=== PATIENT | male | born 1930 | race Caucasian/White ===

== ENCOUNTER → 2018-11-21 | Day surgery (SDC) | payer MEDICARE, BC ==
[~2018-11-21] MED LIST: Lactated Ringers 1,000 ML IV SCH; Propofol 200 MG/20 ML SDV IV ONE
[2018-11-21 09:59] VITALS: BP 108/84
--- NOTE | 2018-11-24 09:46 | OR ---
DATE OF OPERATION: 11/21/2018 PREOPERATIVE DIAGNOSIS: 1. FOLLOWUP POLYPS. 2. FAMILY HISTORY OF COLON CARCINOMA. POSTOPERATIVE DIAGNOSIS: 1. FOLLOWUP POLYPS. 2. FAMILY HISTORY OF COLON CARCINOMA. SURGEON: Abram Stephens MD PROCEDURE: FULL-LENGTH COLONOSCOPY WITH FORCEPS POLYP REMOVAL X1. ANESTHESIA: ELDERLY COMPANION due to advanced age. COMPLICATIONS: None. SPECIMEN: Sessile polyp at the splenic flexure, less than 0.5 cm. FINDINGS: 1. Full-length colonoscopy. 2. Small sessile polyps, splenic flexure. 3. Minimal diverticulosis distal sigmoid colon. RECOMMENDATIONS: Followup colonoscopy in 5 years per patient's desire. INDICATIONS: The patient approximately 3 years ago had a colonoscopy with 2 polyps removed. He has a brother with a history of colon cancer. He was sent for a followup colonoscopy. DESCRIPTION OF PROCEDURE: The patient was prepped and draped, placed in the left lateral decubitus position. A lubricated Olympus colonoscope was inserted and easily advanced to the cecum. Direct visualization of the ileocecal valve and appendiceal orifice was accomplished. The bowel prep was adequate. Upon withdrawal of the scope, the cecum and ascending colon were benign. In the distal transverse colon near the splenic flexure, the patient had a small flat sessile polyp removed in its entirety with 2 cold forceps biopsies. Resolution of bleeding was spontaneous. The rest of the descending colon was unremarkable. In the sigmoid area, the patient had no signs of any polyps, mass, ulceration, bleeding sites. No vascular abnormalities or signs of colitis. Few scattered diverticula were seen in the most distal portion near the rectosigmoid junction, very minimal in severity. The rectal vault appeared benign. Retroflexion showed some prominent perianal hemorrhoid disease but otherwise no lesions. Air was then suctioned. Scope removed without complication. MJP/KAYL /[id number] CC: Dr. Gui Mcdermott MD [address] [address]
== END ==
LOC: CC.SDS 08:03
PROVIDERS: ATTEND Family Medicine
DX: Z12.11 Encounter for screening for malignant neoplasm of colon (principal); K63.5 Polyp of colon; K57.30 Diverticulosis of large intestine without perforation or abscess without bleeding; K64.9 Unspecified hemorrhoids; I10 Essential (primary) hypertension; K21.9 Gastro-esophageal reflux disease without esophagitis; Z86.010 Personal history of colon polyps; Z79.82 Long term (current) use of aspirin; Z79.899 Other long term (current) drug therapy; Z80.0 Family history of malignant neoplasm of digestive organs
CPT/HCPCS: J2704; J7120

== ENCOUNTER → 2020-01-15 | Day surgery (SDC) | payer MEDICARE, BC ==
[2020-01-15 09:35] VITALS: BP 133/61; PULSE 65
--- NOTE | 2020-01-15 14:09 | OR ---
DATE OF OPERATION: 01/15/2020 PREOPERATIVE DIAGNOSIS: 1. MELENA. 2. GASTROESOPHAGEAL REFLUX DISEASE. POSTOPERATIVE DIAGNOSIS: 1. DUODENITIS/GASTRITIS. 2. APPLE-CORE LESION, HEPATIC FLEXURE. SURGEON: Abram Stephens MD PROCEDURE: 1. EGD WITH BIOPSIES X4, POLYP REMOVAL X2, LARRY. 2. FULL-LENGTH COLONOSCOPY TO HEPATIC FLEXURE WITH BIOPSIES X3. ANESTHESIA: MAC. COMPLICATIONS: None. SPECIMEN: 1. Duodenal bulb biopsy x2. 2. Antral biopsy x2. 3. Antral LARRY. 4. Fundal polyps x2. 5. Biopsy x3, hepatic flexure. FINDINGS: 1. Full-length EGD. 2. Mild duodenitis and gastritis. 3. Multitude of fundal adenomatous polyps. 4. Full-length colonoscopy. 5. Pandiverticulosis. 6. Ulcerative stricture, hepatic flexure with evidence of bleeding. RECOMMENDATIONS: The patient will have close followup with the surgical services per Dr. Mcdermott pending path reports. He will need this dealt with. INDICATIONS: The patient apparently has been having some issues with reflux. He had some episodes of melenic stools. Dr. Mcdermott sent him for upper and lower endoscopy. DESCRIPTION OF PROCEDURE: The patient was prepped and draped, placed in the left lateral decubitus position. A lubricated Olympus gastroscope was inserted over a bit, advanced to cricopharyngeus area, and easily intubated into the esophagus. Esophageal lining was benign in its entire course. The Z-line was crisp and sharp around 39 to 40 cm. The scope was advanced easily into the stomach and through the pylorus, into the 2nd portion of the duodenum. This was benign. The duodenal bulb had some mild duodenitis. No active bleeding or ulceration. A biopsy was taken x2. The scope was brought back into the stomach and retroflexed. The upper fundus and cardia were grossly benign. The upper fundus and midportion of the body of the fundus had diffuse adenomatous polyps, benign in appearance. Two of the larger ones were removed without complication with forceps. Some mild chronic-appearing antral gastritis without any inflammation, ulceration, or erosion. Two biopsies were taken along with a LARRY. Air was then suctioned from the stomach and the scope removed without complication. A lubricated Olympus colonoscope was then inserted and with ease advanced deep to the right colon. I believe at the hepatic flexure, the patient has a strictured area. There is no bulkiness to this, but I could not penetrate through it. It was ulcerative and very friable to touch. No mass-like effect was seen, but erosive changes noted. We did do 3 biopsies in and near the strictured area. The rest of the transverse and descending colon were benign. Throughout the sigmoid and rectosigmoid area, no further polyps, masses, ulceration, or bleeding sites were seen. The rectal vault appeared benign. Retroflexion showed no anal lesions. It is worthy to note, the patient had diverticular disease throughout. Air was then suctioned, scope removed without complication. MANDA/CHEO /[id number]
== END ==
LOC: CC.SDS 07:50
PROVIDERS: ATTEND Family Medicine
DX: K21.9 Gastro-esophageal reflux disease without esophagitis (principal); K29.81 Duodenitis with bleeding; K29.51 Unspecified chronic gastritis with bleeding; K31.7 Polyp of stomach and duodenum; K63.3 Ulcer of intestine; K57.31 Diverticulosis of large intestine without perforation or abscess with bleeding; I10 Essential (primary) hypertension; I25.10 Atherosclerotic heart disease of native coronary artery without angina pectoris; E55.9 Vitamin D deficiency, unspecified; E78.5 Hyperlipidemia, unspecified; E78.00 Pure hypercholesterolemia, unspecified; Z79.899 Other long term (current) drug therapy
CPT/HCPCS: 43239; 45380; 87081; J2704; J7120